=== PATIENT | female | born 1950 | race Caucasian/White ===

== ENCOUNTER 2018-07-28 08:38 | Day surgery (SDC) | payer MEDICARE, OTHER ==
[~2018-07-28] VITALS: Ht 149.9 cm; Wt 69.5 kg
--- NOTE | ~2018-07-28 | OP ---
PATIENT NAME: STEVEN PAUL MEDICAL RECORD: [id number] :50 LOCATION:[facility] ADMISSION DATE: SURGEON: MARI TIRADO DO DATE OF OPERATION: 07/28/2018 PROCEDURE: Colonoscopy with polypectomy. INDICATIONS FOR PROCEDURE: Positive DNA based colorectal cancer screening, diarrhea, which the patient states has resolved. SCOPE: Olympus video pediatric colonoscope. MEDICATIONS: Propofol 600 mg IV per anesthesia. WITHDRAWAL TIME: 29 minutes. ESTIMATED BLOOD LOSS: Minimal. COMPLICATIONS: None. FINDINGS AND DESCRIPTION OF PROCEDURE: Informed consent was given. The patient was made comfortable with the above medication. After reaching an adequate level of sedation by slow IV push, the patient was placed on her left side. A digital rectal examination was performed and revealed some external hemorrhoids. The endoscope was then advanced under direct visualization through the rectum, to the cecum, confirmed by the presence of the appendiceal orifice and ileocecal valve. There were 6 polyps visualized on today's examination. They were all sessile and benign-appearing. Three of these were located in the ascending colon and 3 were located in the transverse colon. They ranged in size from 4-mm to 1.2 cm. They were all removed using a hot snare. There was evidence of mild diverticulosis in the sigmoid colon. Retroflexion was performed in the rectum with visualization of grade I internal hemorrhoids. The endoscope was withdrawn from the patient. The patient tolerated the procedure well and there were no complications. IMPRESSION: 1. Six polyps as described above, removed using hot snare. 2. Mild diverticulosis of the sigmoid colon. 3. Grade I internal hemorrhoids without active bleeding. 4. External hemorrhoids on digital rectal examination. PLAN AND RECOMMENDATIONS: 1. Discharge home when recovery parameters are met. 2. Follow up biopsy specimen results. 3. High fiber diet. 4. Continue current medications. 5. Recall colonoscopy in 1 years' time for continued surveillance based on the number of polyps as well as the size of polyps removed on today's examination. TRANSINT:[id number] Voice Confirmation ID: [id number] DOCUMENT ID: [id number] OPERATIVE REPORT [id number] STEVEN PAUL MARI TIRADO DO at 1012 CC: [id number] DICTATION DATE: 07/28/18 1057 IRISH MOSS BLEACHER: 07/28/18 1133 DEP SDC 07/28/18 [facility] [place] [address] [place] [address]
[2018-07-28] MEDS ORDERED: PROZAC20 MG PO (09:22)
[2018-07-28] MEDS ORDERED: NORVASC10 MG PO (09:22)
[2018-07-28] MEDS ORDERED: SYNTHROID137 MCG PO (09:23)
[2018-07-28] MEDS ORDERED: NORCO 10-325 TA1 TAB (09:23)
[2018-07-28] MEDS ORDERED: PREVACID15 MG PO (09:24)
[2018-07-28 09:28] LABS: HEMATOCRIT 37.3 % (36.0-48.0); HEMOGLOBIN 12.4 g/dL (12-16); MCH 30.6 pg (26.0-34.0); MCHC 33.2 g/dL (31.0-37.0); MCV 92.1 fL (80.0-100.0); MEAN PLATELET VOLUME 9.7 fL (7.4-10.4); RBC 4.05 10x6/uL (4.00-5.40); RDW 13.3 % (11.5-14.5)
[2018-07-28 09:49] VITALS: BP 114/85; Ht 149.9 cm; Wt 69.5 kg
== END 2018-07-28 11:47 | disposition home or self-care (01) ==
LOC: D.OPS 08:38
PROVIDERS: Anesthesiology
DX: K63.5 Polyp of colon (principal); K57.90 Diverticulosis of intestine, part unspecified, without perforation or abscess without bleeding; K64.0 First degree hemorrhoids; K64.4 Residual hemorrhoidal skin tags

== ENCOUNTER 2018-08-09 09:32 | Day surgery (SDC) | payer MEDICARE, OTHER ==
[~2018-08-09] VITALS: Ht 144.8 cm; Wt 70.5 kg
--- NOTE | ~2018-08-09 | OP ---
PATIENT NAME: STEVEN PAUL MEDICAL RECORD: [id number] :50 LOCATION:[facility] ADMISSION DATE: SURGEON: MARI TIRADO DO DATE OF OPERATION: 08/09/2018 PROCEDURE: EGD with biopsies. INDICATIONS FOR PROCEDURE: Epigastric pain, heartburn, nausea. SCOPE: Olympus video gastroscope. MEDICATIONS: Propofol 140 mg IV per anesthesia. ESTIMATED BLOOD LOSS: Minimal. COMPLICATIONS: None. FINDINGS: Informed consent was given. The patient was made comfortable with the above medication. After reaching an adequate level of sedation by slow IV push, the patient was placed on her left side. The endoscope was advanced under direct visualization through the mouth to the second portion of the duodenum. The upper, middle, and lower thirds of the esophagus appeared normal. At the GE junction, there was evidence of LA class A reflux-induced esophagitis. The endoscope was advanced beyond the GE junction into the stomach and retroflexed to view the cardia, where a small sliding hiatal hernia was present. Throughout the fundus, body of the stomach, and proximal antrum, there were multiple benign-appearing fundic gland type gastric polyps. A biopsy was taken of one of these polyps to confirm their benign nature. Throughout the body and antrum of the stomach, there were patchy areas of erythema and granularity consistent with gastritis. Random cold forceps biopsies were taken to submit for histopathology and to rule out the presence of H. pylori. The endoscope was advanced beyond the pylorus into the duodenum. The entire examined duodenum appeared normal. The endoscope was then withdrawn from the patient. The patient tolerated the procedure well and there were no complications. IMPRESSION: 1. LA class A reflux-induced esophagitis. 2. Small sliding hiatal hernia. 3. Gastritis. 4. Multiple benign appearing fundic gland type gastric polyps. PLAN AND RECOMMENDATIONS: 1. Discharge home when recovery parameters are met. 2. Follow up biopsy specimen results. 3. Continue GERD diet and reflux precautions. 4. Continue current medications. 5. Notify the GI clinic if symptoms return as they currently have resolved over the past few weeks. 6. If the nausea remains a persistent symptom when symptoms do return, consider gastric emptying scan. TRANSINT:[id number] Voice Confirmation ID: [id number] DOCUMENT ID: [id number] OPERATIVE REPORT [id number] STEVEN PAUL MARI TIRADO DO at 0800 CC: [id number] DICTATION DATE: 08/09/18 1208 STEREO OPERATOR: 08/09/18 1250 [facility] 08/09/18 [place] [id number] [place] [address]
[~2018-08-09 09:32] MED LIST: NORCO 10-325 TA1 TAB; NORVASC10 MG PO; PREVACID15 MG PO; PROZAC20 MG PO; SYNTHROID137 MCG PO
[2018-08-09 09:52] LABS: HEMOGLOBIN 10.9 g/dL (12-16); MCH 29.9 pg (26.0-34.0); MCV 90.4 fL (80.0-100.0); MEAN PLATELET VOLUME 9.4 fL (7.4-10.4); RBC 3.65 10x6/uL (4.00-5.40); RDW 13.6 % (11.5-14.5); WBC 6.4 10x3/uL (4.8-10.8)
[2018-08-09 11:01] VITALS: BP 146/71; Ht 144.8 cm; Wt 70.5 kg
== END 2018-08-09 14:10 | disposition home or self-care (01) ==
LOC: D.OPS 09:32
PROVIDERS: Anesthesiology
DX: K21.0 Gastro-esophageal reflux disease with esophagitis (principal); K44.9 Diaphragmatic hernia without obstruction or gangrene; K29.50 Unspecified chronic gastritis without bleeding; K31.7 Polyp of stomach and duodenum; Z01.812 Encounter for preprocedural laboratory examination

== ENCOUNTER → 2019-02-23 10:58 | Outpatient (CLI) | payer MEDICARE, OTHER ==
[2018-08-09 11:01] VITALS: BMI 33.6
== END | disposition home or self-care (01) ==
LOC: D.NM 10:58
PROVIDERS: ATTEND Internal Medicine Gastroenterology
DX: R12 Heartburn (principal); R10.13 Epigastric pain